=== PATIENT | male | born 1990 | race Caucasian/White ===

== ENCOUNTER 2019-02-14 16:12 | Inpatient (IN) | payer MEDICAID, OTHER ==
[~2019-02-14] VITALS: Ht 160 cm; Wt 72.0 kg
[2019-02-14] MEDS ORDERED: SOD CHLORIDE 0.9% 1,000 ML IV STA (16:39)
[2019-02-14] MEDS ORDERED: LACTATED RINGER'S 1,000 ML IV STA (16:39)
[2019-02-14] MEDS ORDERED: KETOROLAC 15 MG INJ IV STA (16:39)
[2019-02-14] MEDS ORDERED: ONDANSETRON 4 MG INJ IV STA (16:39)
[2019-02-14] MEDS ORDERED: CEFAZOLIN 1 GM/50 ML (PMX) 50 ML IVPB SCH (17:00)
[2019-02-14] MEDS ORDERED: DIPHTH/TET/ACEL PERTUSS (ADULT) 0.5 ML VIAL IM* ONE (17:00)
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
[2019-02-14] MEDS ORDERED: morphine 2 MG INJ IV PRN (18:30)
[2019-02-14] MEDS ORDERED: ACETAMINOPHEN 325 MG TAB PO PRN (18:30)
[2019-02-14] MEDS ORDERED: NACL 0.9% 3 ML SYG IV SCH (18:30)
[2019-02-14] MEDS ORDERED: OLAN10TA7 PO (18:42)
[2019-02-14] MEDS ORDERED: BEN50 PO (18:42)
[2019-02-14] MEDS ORDERED: RISP1TAB3 PO (18:43)
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
[2019-02-14] MEDS ORDERED: LIDOCAINE 1%/EPI (MDV) 50 ML INJ INJ ONE (20:00)
[2019-02-14] MEDS ORDERED: LIDOCAINE 1%/EPI (1:100,000) (MDV) 20 ML INJ SCH (20:30)
[2019-02-14] MEDS: OLANZAPINE 5 MG TAB PO SCH (20:53)
[2019-02-15] VITALS (11 sets, daily range): BP systolic 107–137; BP diastolic 56–83; PULSE 83–107; RESP 18; Ht 160 cm; Wt 72.0 kg
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
[2019-02-15] MEDS: HYDROCODONE/APAP (5/325) TAB PO PRN ×3 (04:49→17:28)
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
[2019-02-15] MEDS: OLANZAPINE 5 MG TAB PO SCH (22:05)
[2019-02-16] VITALS (8 sets, daily range): BP systolic 112–136; BP diastolic 67–82; PULSE 90–102; RESP 18
[2019-02-16] MEDS ORDERED: ACET325T45 PO (10:01)
--- NOTE | 2019-02-16 10:02 | PDOCDIS ---
Discharge Instructions CONDITION [id number] Patient Condition: [id number] Stable FOLLOW UP/APPOINTMENTS Follow-up Plan 1. Please return to the ED with within 7 to 8 days for staple removal 2. Please stay away from aspirin or nonsteroidal anti-inflammatory medication such as Advil for pain due to possible worsening bleeding. Please only take Tylenol for pain 3 please follow-up with a mental health professional. DEB WILLOUGHBY Feb 16, 2019 10:02
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
== END 2019-02-16 13:30 | disposition home or self-care (01) | DRG 90 ==
LOC: EDBD 16:12 → E/R 16:12 → SUATTDRO 18:27 → 6WM 18:28 → EDBEDREQ 18:37
PROVIDERS: ADMIT Internal Medicine; ATTEND Internal Medicine
DX: S06.0X0A Concussion without loss of consciousness, initial encounter (principal); V17.4XXA Pedal cycle driver injured in collision with fixed or stationary object in traffic accident, initial encounter; S00.03XA Contusion of scalp, initial encounter; F20.9 Schizophrenia, unspecified; R47.1 Dysarthria and anarthria; D50.0 Iron deficiency anemia secondary to blood loss (chronic)
CPT/HCPCS: 36415; 70450; 71045; 71250; 72125; 74176; 80048; 80053; 80307; 83036; 83690; 83735; 84100; 85025; 85610; 85730; 86703; 86704; 86709; 86803; 87340; 90471; 90715; 93005; 96374; 96375; J0690; J1885; J2270; J2405; J7030; J7120

== ENCOUNTER 2019-02-25 16:00 | Emergency (ER) | payer MEDICAID ==
[~2019-02-25] VITALS: Wt 66.4 kg
[~2019-02-25 16:00] MED LIST: ACET325T45 PO; BEN50 PO; OLAN10TA7 PO
[2019-02-25 16:47] VITALS: BP 145/114; PULSE 88; RESP 20
[2019-02-25] MEDS ORDERED: OLAN5TAB68 PO (18:54)
--- NOTE | 2019-02-25 19:08 | ERD ---
ER Documentation Chief Complaint Chief Complaint wound check: lac to head w sutures/ jose enrique placed 'last week' HPI Patient is a 28-year-old male with schizophrenia who presents for suture removal and staple removal. The patient had a lack to his left posterior scalp on February 14. He had 3 sutures and 4 jose enrique placed by my colleague. The patient has no pus and no fevers. He has no other complaints. He just needs these removed. The patient's girlfriend is requesting a prescription for his schizophrenia medication as well. Review of records show that he is taking Zyprexa 10 mg daily. ROS All systems reviewed and are negative except as per history of present illness. Medications Home Meds Active Scripts Olanzapine* (Zyprexa* Zydis) 5 Mg Tab, 10 MG PO DAILY for 7 Days, TAB Prov:SABA LUZ MD 02/25/19 Acetaminophen* (Acetaminophen*) 325 Mg Tablet, 325 MG PO Q4H PRN for PAIN, #18 TAB Prov:DEB WILLOUGHBY 02/16/19 Reported Medications Olanzapine* (Zyprexa*) 10 Mg Tablet, 10 MG PO DAILY, #30 TAB 02/14/19 Diphenhydramine Hcl* (Benadryl*) 50 Mg Cap, 100 MG PO NEEDED PRN for ITCHING, CAP 02/14/19 Allergies Allergies: Coded Allergies: No Known Allergy (Unverified , 02/14/19) PMhx/Soc Medical and Surgical Hx: pt denies Medical Hx History of Surgery: No Anesthesia Reaction: No Hx Neurological Disorder: No Hx Respiratory Disorders: No Hx Cardiac Disorders: No Hx Psychiatric Problems: Yes (SCHIZOPHRENIA) Hx Miscellaneous Medical Probl: No Hx Alcohol Use: Yes (BEER, HARD ALCOHOL) Hx Substance Use: Yes Hx Tobacco Use: Yes Smoking Status: Former smoker FmHx Family History: No diabetes Physical Exam Vitals Vital Signs Date Temp Pulse Resp B/P (MAP) Pulse Ox O2 O2 Flow FiO2 Time Delivery Rate 02/25/19 98.1 88 20 145/114 99 16:47 (124) Physical Exam Const: No acute distress Head: Atraumatic Eyes: Normal Conjunctiva ENT: Normal External Ears, Nose and Mouth. Neck: Full range of motion. No meningismus. Resp: Clear to auscultation bilaterally Cardio: Regular rate and rhythm, no murmurs Abd: Soft, non tender, non distended. Normal bowel sounds Skin: Incision to the left posterior scalp is clean, dry, and intact Back: No midline or flank tenderness Ext: No cyanosis, or edema Neur: Awake and alert Psych: Normal Mood and Affect Procedures/MDM Suture and staple removal by me: Sutures removed with tweezers and scissors without incident. Jose Enrique removed without difficulty. Wound shows no evidence of infection, foreign body, neurologic injury, vascular injury, open joint or tendon laceration. Patient to follow up PRN. Patient will be given a one-week prescription for Zyprexa. Departure Diagnosis: Primary Impression: Visit for suture removal Condition: Fair Patient Instructions: Staple Removal, No Complication, Suture Removal, No Complication Referrals: [facility] YOU HAVE RECEIVED A MEDICAL SCREENING EXAM AND THE RESULTS INDICATE THAT YOU DO NOT HAVE A CONDITION THAT REQUIRES URGENT TREATMENT IN THE EMERGENCY DEPARTMENT. FURTHER EVALUATION AND TREATMENT OF YOUR CONDITION CAN WAIT UNTIL YOU ARE SEEN IN YOUR DOCTORS OFFICE WITHIN THE NEXT 1-2 DAYS. IT IS YOUR RESPONSIBILITY TO MAKE AN APPOINTMENT FOR FOLOW-UP CARE. IF YOU HAVE A PRIMARY DOCTOR --you should call your primary doctor and schedule an appointment IF YOU DO NOT HAVE A PRIMARY DOCTOR YOU CAN CALL OUR PHYSICIAN REFERRAL HOTLINE AT IF YOU CAN NOT AFFORD TO SEE A PHYSICIAN YOU CAN CHOSE FROM THE FOLLOWING [facility] [address] [facility]. [facility] [address] [facility]. [facility] [place] [address] [facility]. [facility] [address] [facility]. [facility] [address] [facility]. [facility]. [address] Additional Instructions: Call your primary care doctor TOMORROW for an appointment during the next 1 WEEK.Tell the bilingual secretary that you were referred from this facility.See the doctor sooner or return here if your condition worsens before your appointment time. SABA LUZ MD February 25, 2019 19:08
== END 2019-02-25 19:19 | disposition home or self-care (01) ==
LOC: FTE 16:00
DX: Z48.02 Encounter for removal of sutures (principal); Z87.891 Personal history of nicotine dependence
CPT/HCPCS: 99281